=== PATIENT | female | born 2000 | race Caucasian/White ===

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

== ENCOUNTER 2018-07-31 14:19 | Emergency (ER) | payer BC ==
[2018-07-31 14:30] VITALS: BP 125/84
[2018-07-31] MEDS ORDERED: Sodium Chloride 0.9% 10 ML Syringe FLUSH PRN ×2 (14:48→14:52)
[2018-07-31] MEDS ORDERED: Ondansetron 4 MG/2 ML SDV IVPUSH ONE (14:48)
[2018-07-31] MEDS ORDERED: Sodium Chloride 0.9% 1,000 ML IV ONE (14:48)
[2018-07-31] MEDS ORDERED: HYDROmorphone 0.5 MG/0.5 ML SYRINGE IVPUSH ONE (14:48)
[2018-07-31] MEDS ORDERED: Iopamidol 612 MG/ML 100 ML Bottle IVPUSH ONE (14:52)
--- NOTE | 2018-07-31 14:56 | EDM.PDOC ---
ED HPI GENERAL MEDICAL PROBLEM - General Chief Complaint: Abdominal Pain Stated Complaint: RIGHT SIDE PAIN Time Seen by Provider: 07/31/18 14:40 Source of Information: Reports: Patient History Limitations: Reports: No Limitations - History of Present Illness INITIAL COMMENTS - FREE TEXT/NARRATIVE: 17-year-old female complaining of right adnexa/right lower quadrant abdominal pain. Patient states she was recently diagnosed with ruptured of a right ovarian cyst via ultrasound. Patient was discharged home with instructions to continue taking ibuprofen for pain. Patient states the pain to the right lower quadrant/adnexa has worsened and is not radiating into her right flank and low back. She is mildly nauseated with no emesis. No documented fever. Appetite has been poor. No pain with urination. No hematuria. No abnormal vaginal discharge. Denies being . Last menstrual cycle was July 06. She has a history kidney stones. No abdominal surgery history. No changes in bowel movements noted. No blood present within the stool. Treatments PAINT MIXER: Reports: NSAIDS Right Lower Abdomen Pain Score (Numeric/FACES): 8 - Related Data Allergies Allergy/AdvReac Type Severity Reaction Status Date / Time nickel Allergy Rash Verified 07/31/18 14:30 Home Meds: Home Meds Acetaminophen/HYDROcodone [[facility] 325-5 MG] 1 tab PO Q6H PRN #8 tablet 07/31/18 [ Rx] Past Medical History - Past Health History Medical/Surgical History: Denies Medical/Surgical History Social & Family History - Tobacco Use Smoking Status *Q: Never Smoker - Caffeine Use Caffeine Use: Reports: None - Recreational Drug Use Recreational Drug Use: No ED ROS GENERAL - Review of Systems Review Of Systems: See Below Constitutional: Reports: Decreased Appetite. Denies: Fever, Chills HEENT: Reports: No Symptoms Respiratory: Reports: No Symptoms Cardiovascular: Reports: No Symptoms GI/Abdominal: Reports: Abdominal Pain, Nausea. Denies: Black Stool, Bloody Stool, Constipation, Diarrhea, Decreased Appetite, Difficulty Swallowing, Distension, Flatus, Hematemesis, Hematochezia, Vomiting : Reports: No Symptoms Musculoskeletal: Reports: Back Pain (right flank) Skin: Reports: No Symptoms Neurological: Reports: No Symptoms ED EXAM, GI/ABD - Physical Exam Exam: See Below Exam Limited By: No Limitations General Appearance: Alert, WD/WN, Mild Distress Ears: Hearing Grossly Normal Nose: Normal Inspection Throat/Mouth: Normal Voice, No Airway Compromise Neck: Normal Inspection, Supple Respiratory/Chest: No Respiratory Distress, Lungs Clear, Normal Breath Sounds, No Accessory Muscle Use, Chest Non-Tender Cardiovascular: Normal Peripheral Pulses, Regular Rate, Rhythm, No Murmur GI/Abdominal Exam: Normal Bowel Sounds, Soft, No Organomegaly, No Distention, Tender (Right adnexa and along mcburneys point. ) Back Exam: Normal Inspection. No: CVA Tenderness (L), CVA Tenderness (R) Extremities: Normal Inspection Neurological: Alert, Oriented, CN II-XII Intact, Normal Cognition, No Motor/ Sensory Deficits Psychiatric: Normal Affect, Normal Mood Skin Exam: Warm, Dry, Intact, Normal Color, No Rash Course - Vital Signs Last Recorded V/S: Last Vital Signs Temp 98.6 F 07/31/18 14:26 Pulse 78 07/31/18 14:26 Resp 18 07/31/18 14:26 BP 125/84 07/31/18 14:26 Pulse Ox 100 07/31/18 14:26 - Orders/Labs/Meds Orders: Active Orders 24 hr Category Date Time Status Peripheral IV Care [RC] . DIRECTED Care 07/31/18 14:48 Active Peripheral IV Insertion Adult [OM.PC] Routine Oth 07/31/18 14:48 Ordered Labs: Laboratory Tests 07/31/18 07/31/18 07/31/18 Range/Units 14:00 14:48 15:55 WBC 8.40 (3.98-10.04) K/mm3 RBC 4.67 (3.98-5.22) M/mm3 Hgb 13.9 (11.2-15.7) gm/L Hct 40.4 (34.1-44.9) % MCV 86.5 (79.4-94.8) fl MCH 29.8 (25.6-32.2) pg MCHC 34.4 (32.2-35.5) g/dl RDW Std Deviation 42.0 (36.4-46.3) fL Plt Count 206 (182-369) K/mm3 MPV 9.5 (9.4-12.3) fl Neut % (Auto) 54.3 (34.0-71.1) % Lymph % (Auto) 33.2 (19.3-51.7) % [place] % (Auto) 7.1 (4.7-12.5) % Eos % (Auto) 4.9 (0.7-5.8) Baso % (Auto) 0.4 (0.1-1.2) % Neut # (Auto) 4.56 (1.56-6.13) K/mm3 Lymph # (Auto) 2.79 (1.18-3.74) K/mm3 [place] # (Auto) 0.60 H (0.24-0.36) K/mm3 Eos # (Auto) 0.41 H (0.04-0.36) K/mm3 Baso # (Auto) 0.03 (0.01-0.08) K/mm3 Sodium (136-145) mEq/L Potassium (3.5-5.1) mEq/L Chloride (98-107) mEq/L Carbon Dioxide (21-32) mEq/L Anion Gap (5-15) BUN (7-18) mg/dL Creatinine (0.55-1.02) mg/dL Est Cr Clr Drug Dosing mL/min Estimated GFR (MDRD) (>60) mL/min BUN/Creatinine Ratio (14-18) Glucose (74-106) mg/dL Calcium (8.5-10.1) mg/dL Total Bilirubin (0.2-1.0) mg/dL AST (15-37) U/L ALT (14-59) U/L Alkaline Phosphatase (46-116) U/L C-Reactive Protein (<1.0) mg/dL Total Protein (6.4-8.2) g/dl Albumin (3.4-5.0) g/dl Globulin gm/dL Albumin/Globulin Ratio (1-2) Urine Color Yellow (Yellow) Urine Appearance Clear (Clear) Urine pH 7.5 (5.0-8.0) Ur Specific [place] 1.020 (1.005-1.030) Urine Protein Negative (Negative) Urine Glucose (UA) Negative (Negative) Urine Ketones Negative (Negative) Urine Occult Blood Negative (Negative) Urine Nitrite Negative (Negative) Urine Bilirubin Negative (Negative) Urine Urobilinogen 0.2 (0.2-1.0) Ur Leukocyte Esterase Negative (Negative) Urine RBC Not seen (0-5) /hpf Urine WBC 0-5 (0-5) /hpf Ur Epithelial Cells 0-5 (0-5) /hpf Urine Bacteria Not seen (FEW) /hpf Urine Mucus Not seen (FEW) /hpf Urine HCG, Qual Negative (NEGATIVE) 07/31/18 Range/Units 15:55 WBC (3.98-10.04) K/mm3 RBC (3.98-5.22) M/mm3 Hgb (11.2-15.7) gm/L Hct (34.1-44.9) % MCV (79.4-94.8) fl MCH (25.6-32.2) pg MCHC (32.2-35.5) g/dl RDW Std Deviation (36.4-46.3) fL Plt Count (182-369) K/mm3 MPV (9.4-12.3) fl Neut % (Auto) (34.0-71.1) % Lymph % (Auto) (19.3-51.7) % [place] % (Auto) (4.7-12.5) % Eos % (Auto) (0.7-5.8) Baso % (Auto) (0.1-1.2) % Neut # (Auto) (1.56-6.13) K/mm3 Lymph # (Auto) (1.18-3.74) K/mm3 [place] # (Auto) (0.24-0.36) K/mm3 Eos # (Auto) (0.04-0.36) K/mm3 Baso # (Auto) (0.01-0.08) K/mm3 Sodium 140 (136-145) mEq/L Potassium 4.0 (3.5-5.1) mEq/L Chloride 106 (98-107) mEq/L Carbon Dioxide 26 (21-32) mEq/L Anion Gap 12.0 (5-15) BUN 12 (7-18) mg/dL Creatinine 0.9 (0.55-1.02) mg/dL Est Cr Clr Drug Dosing 79.52 mL/min Estimated GFR (MDRD) > 60 (>60) mL/min BUN/Creatinine Ratio 13.3 L (14-18) Glucose 82 (74-106) mg/dL Calcium 8.7 (8.5-10.1) mg/dL Total Bilirubin 0.2 (0.2-1.0) mg/dL AST 16 (15-37) U/L ALT 22 (14-59) U/L Alkaline Phosphatase 61 (46-116) U/L C-Reactive Protein < 0.2 (<1.0) mg/dL Total Protein 6.3 L (6.4-8.2) g/dl Albumin 3.5 (3.4-5.0) g/dl Globulin 2.8 gm/dL Albumin/Globulin Ratio 1.3 (1-2) Urine Color (Yellow) Urine Appearance (Clear) Urine pH (5.0-8.0) Ur Specific [place] (1.005-1.030) Urine Protein (Negative) Urine Glucose (UA) (Negative) Urine Ketones (Negative) Urine Occult Blood (Negative) Urine Nitrite (Negative) Urine Bilirubin (Negative) Urine Urobilinogen (0.2-1.0) Ur Leukocyte Esterase (Negative) Urine RBC (0-5) /hpf Urine WBC (0-5) /hpf Ur Epithelial Cells (0-5) /hpf Urine Bacteria (FEW) /hpf Urine Mucus (FEW) /hpf Urine HCG, Qual (NEGATIVE) Meds: Medications Discontinued Medications Generic Name Dose Route Start Last Admin Trade Name Freq PRN Reason Stop Dose Admin Hydromorphone HCl 0.25 mg 07/31/18 14:48 07/31/18 15:16 Dilaudid IVPUSH 07/31/18 14:49 0.25 mg ONETIME ONE Administration Sodium Chloride 1,000 mls @ 999 mls/hr 07/31/18 14:48 07/31/18 15:17 Normal Saline IV 07/31/18 15:48 999 mls/hr ONETIME ONE Administration Iopamidol 100 ml 07/31/18 14:52 07/31/18 15:06 Isovue-300 (61%) IVPUSH 07/31/18 14:53 100 ml ONETIME ONE Administration Ondansetron HCl 4 mg 07/31/18 14:48 07/31/18 15:15 Zofran IVPUSH 07/31/18 14:49 4 mg ONETIME ONE Administration Sodium Chloride 10 ml 07/31/18 14:48 07/31/18 15:20 Saline Flush FLUSH 10 ml ASDIRECTED PRN Administration Keep Vein Open Sodium Chloride 10 ml 07/31/18 14:52 07/31/18 15:07 Saline Flush FLUSH 10 ml ONETIME PRN Administration IV FLUSH - Re-Assessments/Exams Free Text/Narrative Re-Assessment/Exam: Patient has pain along the right adnexa and also along the parties point. Pain is rated 8 out of 10 constant. She's recently diagnosed with ovarian cyst that ruptured first part of this week. On follow-up she went to the clinic today because worsening pain and was instructed to come to the ED for CT of the abdomen and pelvis. IV established with normal saline, Zofran, and Dilaudid. Initial lab studies will include: CBC, chem 14, CRP, hCG, and CT of the abdomen and pelvis with IV contrast. CT abdomen and pelvis impression: Slightly prominent free fluid within the pelvis. Collapsing cyst noted within the right ovary. This lab since this is likely the etiology of free fluid. Slight increased stool within the colon. CT study of the abdomen and pelvis is otherwise unremarkable. Discussed results of CT study with patient and mother. Labs are pending. Per patient pain has drastically improved. CBC and chemistry panel were essentially normal. HCG was negative. UA pending. 1713 discussed lab results with the patient. She is feeling much better with the above therapies. Will discharge patient home without results for UA. She's not having any voiding symptoms dust highly unlikely she has a UTI. She'll be notified if infection is present and started on antibiotics. Patient agrees with plan.The patient remained hemodynamically stable while under my care in the E.D. I discussed the concerning symptoms for which to returnto the E.D. with the patient/family. The patient/family verbalized understanding. All questions were answered. 07/31/18 20:45 UA was cancelled since patient was discharged home. Thus no results available. I have contacted lab and they will rerun the urine if still available. UA was negative. Departure - Departure Time of Disposition: 17:14 Disposition: Home, Self-Care 01 Condition: Good Clinical Impression: Adnexal pain, Ruptured ovarian cyst Constipation Qualifiers: Constipation type: unspecified constipation type Qualified Code(s): K59.00 - Constipation, unspecified - Discharge Information Prescriptions: Acetaminophen/HYDROcodone [[facility] 325-5 MG] 1 tab PO Q6H PRN #8 tablet PRN Reason: Pain (Severe 7-10) Instructions: High-Fiber Diet, Constipation, Adult, [id number], Ovarian Cyst , [id number], Pain Medicine Instructions, [id number], Probiotics Referrals: Amanda Hernandez PA-C [Primary Care Provider] - Doug Rebolledo MD [Physician] - William Hussein MD [Physician] - Bennie Ellis MD [Physician] - Forms: ED Department Discharge Additional Instructions: For pain take ibuprofen 600 mg every 6 hours with food and water. May apply warm compresses to the affected area to help relieve pain. For severe pain take [place] one tab every [address] today since receiving a sedative medication. Do not drive while taking the [place]. Do not take [facility] [place] and Tylenol together. Start taking MiraLAX one capful every day. CT study of the abdomen revealed increased stool pattern suggesting you're constipated. Increase fiber in her diet. Drink plenty of water. Please return back to the ED if you develop any new or worsening symptoms. Follow-up with [facility] specialist of your choice this coming week on follow up if symptoms persist. - My Orders Last 24 Hours: My Active Orders 07/31/18 14:48 Peripheral IV Care [RC] . DIRECTED Peripheral IV Insertion Adult [OM.PC] Routine - Assessment/Plan Last 24 Hours: My Active Orders 07/31/18 14:48 Peripheral IV Care [RC] . DIRECTED Peripheral IV Insertion Adult [OM.PC] Routine
--- NOTE | 2018-07-31 15:25 | CT ---
CT abdomen and pelvis Technique: Multiple axial sections were obtained from above the dome of the diaphragm inferiorly through the pubic symphysis. Intravenous contrast was utilized. No oral contrast has been given. Comparison: No prior CT abdomen or pelvis exam. Findings: Small portion of the visualized lung bases are clear. Liver shows no focal parenchymal abnormality. Spleen appears within normal limits. Adrenal glands show no nodule. Pancreas is within normal limits. Gallbladder contains no calcified gallstones. Kidneys show symmetric contrast enhancement without hydronephrosis or mass. Aorta shows no aneurysmal dilatation. No retroperitoneal adenopathy or mesenteric abnormalities are seen. Moderate amount of free fluid is seen within the pelvis. Collapsing cyst with enhancing wall seen within the right ovary likely the etiology of this free fluid. Appendix is seen and is normal in size. Slight increased stool is noted within the colon. No inflammatory change is seen. Impression: 1. Slightly prominent free fluid within the pelvis. Collapsing cyst noted within the right ovary. This collapsing cyst is likely the etiology of the free fluid. 2. Slight increased stool within the colon. 3. CT study of the abdomen and pelvis is otherwise unremarkable. Diagnostic code #2
== END 2018-07-31 17:45 | disposition home or self-care (01) ==
LOC: JD.ED 14:19
DX: N83.291 Other ovarian cyst, right side (principal); K59.00 Constipation, unspecified; Z91.048 Other nonmedicinal substance allergy status
CPT/HCPCS: 36415; 74177; 80053; 81001; 81025; 85025; 86140; 96361; 96374; 96375; 99284; J1170; J2405; J7040; J7050; Q9967

== ENCOUNTER 2021-09-15 13:36 | Emergency (ER) | payer BC ==
[2021-09-15] MEDS ORDERED: Albuterol 6.7 GM Inhaler INH PRN (14:28)
--- NOTE | 2021-09-15 14:41 | EDM.PDOC ---
ED HPI GENERAL MEDICAL PROBLEM - General Chief Complaint: Chest Pain Stated Complaint: CHEST PAIN COUGH SOB Time Seen by Provider: 09/15/21 13:55 Source of Information: Reports: Patient History Limitations: Reports: No Limitations - History of Present Illness INITIAL COMMENTS - FREE TEXT/NARRATIVE: 20-year-old female presents the emergency department with complaints of chest pa in that worsens with cough and deep breath and cough. Patient states she was diagnosed with Covid on August 22, 2021. She states she took ivermectin for treatment and does not receive any other treatment. She states she really did not have much of a cough during the 10 days that she was on isolation. She has since returned to work and states she did well up until last night when she worked a shift from 3 AM until 1 PM today. She states that she has had a progressively worsening cough with chest pain. Again she states that chest pain is worse with deep breath as well. She denies any recent fever, chills, nausea, vomiting or diarrhea. She states she is otherwise healthy. She has not taken any Tylenol or ibuprofen to treat the discomfort. Chest Pain Score (Numeric/FACES): 8 - Related Data Allergies Allergy/AdvReac Type Severity Reaction Status Date / Time nickel Allergy Rash Verified 09/15/21 13:52 Home Meds: Home Meds No122/Iron/Folic Acid [ Multi Tablet] 1 each PO DAILY 05/17/19 [History] Acetaminophen [Tylenol] 650 mg PO Q6H PRN tablet 06/25/19 [Rx] Benzocaine/Menthol [Dermoplast Pain Relief Kellogg] 1 spray TOP ASDIRECTED PRN canister 06/25/19 [Rx] Chlorhexidine Gluconate [Antiseptic Skin Cleanser] 237 ml TP DAILY #1 liquid 06/25/19 [Rx] Chlorhexidine Gluconate [Peridex] 480 ml MM BID 5 Days #1 mouthwash 06/25/19 [Rx] Docusate Sodium [Colace] 100 mg PO BID PRN cap 06/25/19 [Rx] Ibuprofen [Motrin] 600 mg PO Q6H PRN tablet 06/25/19 [Rx] Lanolin [Lansinoh HPA] 1 applic TOP ASDIRECTED PRN tube 06/25/19 [Rx] Mupirocin Oint [Bactroban Oint] 1 gm TOP BID 5 Days #1 tube 06/25/19 [Rx] lillian Lynn [Tucks] 1 pad TOP ASDIRECTED PRN pad 06/25/19 [Rx] Benzonatate 200 mg PO TID PRN #20 capsule 09/15/21 [Rx] Past Medical History - Past Health History Medical/Surgical History: Denies Medical/Surgical History HEENT History: Reports: Impaired Vision Other HEENT History: wears eyeglasses. Cardiovascular History: Reports: None Respiratory History: Reports: Other (See Below) Other Respiratory History: +) COVID Gastrointestinal History: Reports: GERD Genitourinary History: Reports: UTI, Recurrent DIRECTOR BROADCAST History: Reports: Other DIRECTOR BROADCAST History: see above Musculoskeletal History: Reports: Fracture Neurological History: Reports: Migraines Dermatologic History: Reports: Other (See Below) Other Dermatologic History: acne. - Infectious Disease History Infectious Disease History: Reports: Chicken Pox, MRSA, Novel Coronavirus, Shingles Other Infectious Disease History: MRSA culture + on 06-25-19 - Past Surgical History HEENT Surgical History: Reports: Adenoidectomy, Tonsillectomy Other Female Surgeries/Procedures: ovarian cysts Social & Family History - Family History Family Medical History: No Pertinent Family History - Caffeine Use Caffeine Use: Reports: Coffee, Energy Drinks - Recreational Drug Use Recreational Drug Use: No ED ROS GENERAL - Review of Systems Review Of Systems: Comprehensive ROS is negative, except as noted in HPI. ED EXAM, GENERAL - Physical Exam Exam: See Below Exam Limited By: No Limitations General Appearance: Alert, WD/WN, No Apparent Distress Ears: Normal External Exam, Hearing Grossly Normal Nose: Normal Inspection Throat/Mouth: Normal Inspection, Normal Lips, Normal Voice, No Airway Compromise Head: Atraumatic Neck: Normal Inspection, Supple Respiratory/Chest: No Respiratory Distress, Lungs Clear, Normal Breath Sounds, No Accessory Muscle Use, Chest Non-Tender Cardiovascular: Normal Peripheral Pulses, Regular Rate, Rhythm, No Edema, No Murmur Peripheral Pulses: 2+: Radial (L), Radial (R) GI/Abdominal: Normal Bowel Sounds, Soft, Non-Tender, No Distention (Female) Exam: Deferred Rectal (Female) Exam: Deferred Back Exam: Normal Inspection Extremities: Normal Inspection, Normal Range of Motion, Non-Tender, No Pedal Edema, Normal Capillary Refill Neurological: Alert, Oriented, Normal Cognition Psychiatric: Normal Affect, Normal Mood Skin Exam: Warm, Dry, Intact, Normal Color, No Rash Lymphatic: No Adenopathy #1 Interpretation EKG Date: 09/15/21 Time: 14:44 Rhythm: NSR Rate (Beats/Min): 77 Bartlett: Normal P-Wave: Present QRS: Normal ST-T: Normal QT: Normal EKG Interpretation Comments: Per Dr. Kim interpretation: Sinus rhythm at 77 bpm Course - Vital Signs Text/Narrative:: As stated above, patient presents with chest pain that started last evening associated with cough. She denies shortness of breath. She states the cough is minimally productive. Diagnosed with Covid on August 22, 2021. Also states she has been taking Mucinex. Upon exam, patient's lung sounds are clear to all rodriguez. Pain is not reproducible with palpation. We will obtain an EKG and a portable chest x-ray. We will give the patient an albuterol inhaler. Last Recorded V/S: Last Vital Signs Temp 97.2 F 09/15/21 13:50 Pulse 88 09/15/21 13:50 Resp 14 09/15/21 13:50 BP 122/76 09/15/21 13:50 Pulse Ox 100 09/15/21 13:50 - Orders/Labs/Meds Orders: Active Orders 24 hr Category Date Time Status RT Post Treatment Assessment [RC] Click to Edit Care 09/15/21 14:29 Active RT Pre-Treatment Assessment [RC] Click to Edit Care 09/15/21 14:29 Active Albuterol [Proventil HFA] Med 09/15/21 14:28 Active 2 gm INH Q2H PRN Medication Orders Albuterol (Albuterol 6.7 Gm Inhaler) 2 gm INH Q2H PRN PRN Reason: Cough Last Admin: 09/15/21 14:47 Dose: 2 inhalation Documented by: MADDY Meds: Medications Generic Name Dose Route Start Last Admin Trade Name Freq PRN Reason Stop Dose Admin Albuterol 2 gm 09/15/21 14:28 09/15/21 14:47 Albuterol 6.7 Gm Inhaler INH 2 inhalation Q2H PRN Administration Cough - Re-Assessments/Exams Free Text/Narrative Re-Assessment/Exam: 09/15/21 14:55 View portable chest x-ray shows nothing acute. Formal radiologist report is pending. 09/15/21 15:01 Radiologist impression portable view of the chest: 1. Nothing acute is seen on portable chest x-ray. 09/15/21 15:09 Patient reports minimal relief from albuterol inhaler. She will be discharged to home with recommendations that she take ibuprofen 600 mg every 6-8 hours as needed for discomfort. We will also send a prescription to her pharmacy for [facility]. Departure - Departure Time of Disposition: 15:09 Disposition: Home, Self-Care 01 Condition: Good Clinical Impression: Atypical chest pain, Cough Prescriptions: Benzonatate 200 mg PO TID PRN #20 capsule PRN Reason: Cough Instructions: Chest Wall Pain, [id number], Cough, Adult, [id number] Referrals: Amanda Hernandez PA-C [Primary Care Provider] - Forms: ED Department Discharge Additional Instructions: You were seen in the emergency department with worsening chest discomfort with cough. Chest x-ray and EKG were completed and these were unremarkable. While here in the emergency department you were given an albuterol inhaler. This can be used up to every 2 hours as needed for shortness of breath or cough. Keep in mind that if you are consistently using it every 2 hours you can experience heart palpitations/racing. As this is a side effect of this medication. Recommend that you take ibuprofen 600 mg every 6-8 hours for the next 48 hours to decrease pain and inflammation associated with the coughing. Be sure to take this medication with food. I have sent a medication to your pharmacy called [facility]. You can take 1 tablet 3 times daily as needed for cough. Should your condition worsen or change, [facility] Sepsis Event Note (ED) - Evaluation Sepsis Screening Result: No Definite Risk - Focused Exam Vital Signs: Vital Signs Temp Pulse Resp BP Pulse Ox 09/15/21 13:50 97.2 F 88 14 122/76 100 - My Orders Last 24 Hours: My Active Orders 09/15/21 14:28 Albuterol [Proventil HFA] 2 gm INH Q2H PRN 09/15/21 14:29 RT Post Treatment Assessment [RC] Click to Edit RT Pre-Treatment Assessment [RC] Click to Edit - Assessment/Plan Last 24 Hours: My Active Orders 09/15/21 14:28 Albuterol [Proventil HFA] 2 gm INH Q2H PRN 09/15/21 14:29 RT Post Treatment Assessment [RC] Click to Edit RT Pre-Treatment Assessment [RC] Click to Edit
--- NOTE | 2021-09-15 14:55 | CR ---
Chest: Portable view of the chest was obtained. Comparison: No prior chest imaging is available. Heart size and mediastinum are within normal limits. Lungs are clear with no acute parenchymal change. Slight diaphragmatic tenting is seen within the left base which is incidental. Bony structures show nothing acute. Impression: 1. Nothing acute is seen on portable chest x-ray. Diagnostic code #1
[2021-09-15 15:47] VITALS: BP 103/66; PULSE 93
== END 2021-09-15 15:42 | disposition home or self-care (01) ==
LOC: JD.ED 13:36
DX: R07.89 Other chest pain (principal); R05.9 Cough, unspecified; Z91.09 Other allergy status, other than to drugs and biological substances; Z86.16 Personal history of COVID-19
CPT/HCPCS: 71045; 93005; 99285; A9270